=== PATIENT | male | born 1985 | race Caucasian/White ===

== ENCOUNTER 2017-05-04 10:41 | Emergency (ER) | payer MEDICAID ==
[2017-05-04 10:53] VITALS: BMI 36.8
[2017-05-04 10:54] VITALS: RESP 18; TEMP 98; O2SAT 98
[2017-05-04 11:53] LABS: BASO # 0.04 K/mm3 (0.0-2.0); BASO % 0.6 % (0.0-3.0); EOS # 0.2 (0.0-0.7); EOS % 2.8 % (1.5-5.0); GRAN # 3.35 (1.4-6.5); GRAN % 49.4 % (50.0-68.0); HEMATOCRIT 36.8 % (42.0-52.0); LYMPH # 2.5 (1.2-3.4); MEAN CORPUSCULAR HEMOGLOBIN 29.8 pg (25.0-35.0); MEAN CORPUSCULAR HGB CONC 34.2 g/dl (31.0-37.0); MEAN PLATELET VOLUME 9.4 fl (7.0-11.0); MONO # 0.7 (0.1-0.6); MONO % 10.2 % (1.0-6.0); RED CELL DISTRIBUTION WIDTH 13.7 % (11.5-14.5); WHITE BLOOD COUNT 6.8 10^3/ul (4.5-11.0)
[2017-05-04 12:04] LABS: ALB/GLOB RATIO 1.2 (1.1-1.8); ALKALINE PHOSPHATASE 72 U/L (38-126); ALT/SGPT 32 U/L (7-56); AST/SGOT 26 U/L (17-59); BILIRUBIN,TOTAL 0.4 mg/dL (0.2-1.3); BLOOD UREA NITROGEN 13 mg/dL (7-21); CALCIUM 8.9 mg/dL (8.4-10.5); CARBON DIOXIDE 27 mmol/L (21-33); CHLORIDE 105 mmol/L (98-107); GFR AFRICAN-AMERICAN > 60; GLUCOSE,RANDOM 91 mg/dL (70-110); LIPASE 179 U/L (23-300); POTASSIUM 3.9 mmol/L (3.6-5.0); SODIUM 139 mmol/L (132-148)
[2017-05-04 13:28] VITALS: BP 115/78; PULSE 67
[2017-05-04] MEDS ORDERED: Phenytoin 125 mg/5 ml Oral Susp (237 ml) PO STA (13:34)
--- NOTE | 2017-05-04 14:50 | ED PDOC ---
Arrival/HPI - General Chief Complaint: Seizure Time Seen by Provider: 05/04/17 11:11 Historian: Patient - History of Present Illness Narrative History of Present Illness (Text): 05/04/17 11:20 A 31 year old male, whose past medical history includes asthma, seizure, stroke , and PTSD, presents to the emergency department complaining of witnessed seizure x 3 today. Seizure was witnessed by roommate, whom states the seizure lasted a few minutes. Patient denies of any fever, cough, vomiting, or any other complaints. Also, patient smoked marijuana today. Patient states he has not seen PMD for several months, and is noncompliant with Dilantin. No PMD Past Medical History - Provider Review Nursing Documentation Reviewed: Yes - Infectious Disease Hx of Infectious Diseases: None - Tetanus Immunization Tetanus Immunization: Unknown - Past Medical History Past Medical History: No Previous - Cardiac Hx Cardiac Disorders: Yes Hx Heart Murmur: Yes - Pulmonary Hx Asthma: Yes Hx Tuberculosis: No - Neurological HX Cerebrovascular Accident: Yes Hx Seizures: Yes Other/Comment: mosher's palsy - HEENT Hx HEENT Disorder: No - Renal Hx Renal Disorder: No Hx Kidney Stones: No - Endocrine/Metabolic Hx Endocrine Disorders: No - Hematological/Oncological Hx Blood Disorders: No - Integumentary Hx Dermatological Disorder: Yes Hx Eczema: Yes - Musculoskeletal/Rheumatological Hx Musculoskeletal Disorders: No - Gastrointestinal Hx Gastrointestinal Disorders: No Hx Pancreatitis: No - Genitourinary/Gynecological Hx Genitourinary Disorders: No - Psychiatric Hx Anxiety: No Hx Bipolar Disorder: Yes (II) Hx Depression: Yes Hx Post Traumatic Stress Disorder: Yes Hx Substance Use: Yes (marijuana, cocaine, ecstacy) - Surgical History Hx Appendectomy: No Hx Carotid Endarterectomy: No Hx Cholecystectomy: No Hx Coronary Artery Bypass Graft: No Hx Coronary Stent: No Hx Tonsillectomy: No - Anesthesia Hx Anesthesia: Yes Hx Anesthesia Reactions: No Hx Malignant Hyperthermia: No - Suicidal Assessment Feels Threatened In Home Enviroment: No Family/Social History - Physician Review Nursing Documentation Reviewed: Yes Family/Social History: No Known Family HX Smoking Status: Heavy Smoker > 10 Cigarettes Daily Hx Alcohol Use: No Hx Substance Use: Yes (marijuana, cocaine, ecstacy) Substance used: cocaine and heroine Allergies/Home Meds Allergies/Adverse Reactions: Allergies ondansetron HCl [From Zofran (as hydrochloride)] Allergy (Verified 07/24/16 03: 36) RASH Penicillins Adverse Reaction (Verified 07/24/16 03:36) RASH Home Medications: Home Meds Medication Instructions Recorded Confirmed Phenytoin, Extended [Dilantin] 100 mg PO TID 05/04/17 05/04/17 Review of Systems - Physician Review All systems were reviewed & negative as marked: Yes - Review of Systems Constitutional: absent: Fevers Respiratory: absent: Cough Gastrointestinal: absent: Vomiting Neurological: Seizure (occurred 3 times; witnessed by roommate, stating sz lasted few minutes) Physical Exam Vital Signs Reviewed: Yes Vital Signs Temp Pulse Resp BP Pulse Ox 05/04/17 13:28 67 18 115/78 98 05/04/17 12:00 66 18 113/75 98 05/04/17 10:42 98 F 68 18 111/71 98 Temperature: Afebrile Blood Pressure: Normal Pulse: Regular Respiratory Rate: Other Appearance: Positive for: Well-Appearing Pain Distress: None Mental Status: Positive for: Alert and Oriented X 3 - Systems Exam Head: Present: Atraumatic, Normocephalic Pupils: Present: PERRL Extroacular Muscles: Present: EOMI Conjunctiva: Present: Normal Mouth: Present: Normal Tounge (no tongue bite) Neck: Present: Normal Range of Motion Respiratory/Chest: Present: Clear to Auscultation, Good Air Exchange. No: Respiratory Distress, Accessory Muscle Use Cardiovascular: Present: Regular Rate and Rhythm, Normal S1, S2. No: Murmurs Abdomen: Present: Normal Bowel Sounds. No: Tenderness, Distention, Peritoneal Signs Genitourinary Male: No: Other (no urine output) Back: Present: Normal Inspection Upper Extremity: Present: Normal Inspection. No: Cyanosis, Edema Lower Extremity: Present: Normal Inspection. No: Edema Neurological: Present: GCS=15, CN II-XII Intact, Speech Normal Skin: Present: Warm, Dry, Normal Color. No: Rashes Psychiatric: Present: Alert, Oriented x 3, Normal Insight, Normal Concentration Medical Decision Making ED Course and Treatment: 05/04/17 11:26 Impression: 31 year old male with witnessed seizure x 3. Physical exam shows no tongue bite and no urinary output. Plan: -- Labs -- Dilantin -- Pepcid -- Toradol -- Reassess and disposition Prior Visits: Notes and results from previous visits were reviewed. On 07/24/2016 patient came in complaining of epigastric abdominal pain. Patient was admitted. Progress Notes: 05/04/2017 14:05 On re-evaluation, patient feels better and is in no acute distress. I have discussed the results and plan with the patient, who expresses understanding. Patient in agreement with plan to be discharged home. Patient is stable for discharge. Patient was instructed to follow up with physician/clinic in 1-2 days or return if symptoms worsen or new concerning symptoms arise. - Lab Interpretations Lab Results: 05/04/17 11:12 05/04/17 11:12 Lab Results 05/04/17 11:50: Urine Opiates Screen Negative, Urine Methadone Screen Negative, Ur Barbiturates Screen Negative, Ur Phencyclidine Scrn Negative, Ur Amphetamines Screen Negative, U Benzodiazepines Scrn Negative, U Oth Cocaine Metabols Positive H, U Cannabinoids Screen Positive H 05/04/17 11:12: Alcohol, Quantitative < 10 05/04/17 11:12: Phenytoin < 3 L 05/04/17 11:12: Sodium 139, Potassium 3.9, Chloride 105, Carbon Dioxide 27, Anion Gap 11, BUN 13, Creatinine 0.7, Est GFR ( Amer) > 60, Est GFR (Non- Af Amer) > 60, Random Glucose 91, Calcium 8.9, Total Bilirubin 0.4, AST 26, ALT 32, Alkaline Phosphatase 72, Total Protein 7.0, Albumin 3.8, Globulin 3.2, Albumin/Globulin Ratio 1.2, Lipase 179 05/04/17 11:12: WBC 6.8, RBC 4.23, Hgb 12.6 L, Hct 36.8 L, MCV 87.0, MCH 29.8, MCHC 34.2, RDW 13.7, Plt Count 217, MPV 9.4, Gran % 49.4 L, Lymph % (Auto) 37.0 H, Lewis % (Auto) 10.2 H, Eos % (Auto) 2.8, Baso % (Auto) 0.6, Gran # 3.35, Lymph # 2.5, Lewis # 0.7 H, Eos # 0.2, Baso # 0.04 I have reviewed the lab results: Yes - Medication Orders Current Medication Orders: Discontinued Medications Famotidine (Pepcid) 20 mg IVP STAT STA Stop: 05/04/17 11:54 Last Admin: 05/04/17 12:39 Dose: 20 mg Phenytoin 1,000 mg/ Sodium (Chloride) 250 mls @ 300 mls/hr IVPB STAT STA Stop: 05/04/17 12:15 Last Admin: 05/04/17 11:56 Dose: 300 mls/hr Ketorolac Tromethamine (Toradol) 30 mg IVP STAT STA Stop: 05/04/17 11:54 Last Admin: 05/04/17 12:39 Dose: 30 mg Phenytoin (Dilantin) 400 mg PO STAT STA Stop: 05/04/17 13:35 Last Admin: 05/04/17 14:00 Dose: 400 mg - Scribe Statement The provider has reviewed the documentation as recorded by the Dionne Ivan Provider Scribe Attestation: All medical record entries made by the Scribe were at my direction and personally dictated by me. I have reviewed the chart and agree that the record accurately reflects my personal performance of the history, physical exam, medical decision making, and the department course for this patient. I have also personally directed, reviewed, and agree with the discharge instructions and disposition. Disposition/Present on Arrival - Present on Arrival Any Indicators Present on Arrival: No History of DVT/PE: No History of Uncontrolled Diabetes: No Urinary Catheter: No History of Decub. Ulcer: No History Surgical Site Infection Following: None - Disposition Have Diagnosis and Disposition been Completed?: Yes Diagnosis: Epilepsy Disposition: HOME/ ROUTINE Disposition Time: 13:00 Condition: GOOD Discharge Instructions (ExitCare): Epilepsy (ED) Additional Instructions: Thank you for letting us take care of you today. Your provider was Dr. Olsen. You were treated for seizure disorder. The emergency medical care you received today was directed at your acute symptoms. If you were prescribed any medication, please fill it and take as directed. It may take several days for your symptoms to resolve. Return to the Emergency Department if your symptoms worsen, do not improve, or if you have any other problems. Please contact your doctor or call one of the physicians/clinics you have been referred to that are listed on the Patient Visit Information form that is included in your discharge packet. Bring any paperwork you were given at discharge with you along with any medications you are taking to your follow up visit. Our treatment cannot replace ongoing medical care by a primary care provider (PCP) outside of the emergency department. Thank you for allowing the [facility] team to be part of your care today. Follow up with your doctor in 2-3 days for re-evaluation and further management. Prescriptions: Phenytoin, Extended [Dilantin] 100 mg PO TID #21 cer Referrals: PCP,NO [Primary Care Provider] - Follow up with primary
== END 2017-05-04 14:05 | disposition home or self-care (01) ==
LOC: ED 10:41
DX: G40.909 Epilepsy, unspecified, not intractable, without status epilepticus (principal); F43.10 Post-traumatic stress disorder, unspecified; Z86.73 Personal history of transient ischemic attack (TIA), and cerebral infarction without residual deficits; Z87.891 Personal history of nicotine dependence
CPT/HCPCS: 80053; 80185; 80320; 80324; 80345; 80346; 80349; 80353; 80358; 80361; 83690; 83992; 85025; 96374; 96375; 99285; J1165; J1885